=== PATIENT | male | born 1990 | race Caucasian/White ===

== ENCOUNTER 2017-11-06 14:26 | Emergency (ER) | payer BC, SELFPAY ==
[2017-11-06 14:28] VITALS: BP 157/93; PULSE 98; RESP 18; TEMP 36.4; O2SAT 97; BMI 38.7
--- NOTE | 2017-11-06 14:36 | EKG12_ITS ---
Test Reason : CP Blood Pressure : / mmHG Vent. Rate : 090 BPM Atrial Rate : 090 BPM P-R Int : 126 ms QRS Dur : 082 ms QT Int : 344 ms P-R-T Axes : 038 043 038 degrees QTc Int : 420 ms Normal sinus rhythm Normal ECG Confirmed by CHAD BOUCHER MD ([id number]), associate editor JACOB MEDINA ([id number] on 11/10/2017 8:27:01 AM Referred By: Confirmed By:CHAD BOUCHER MD
[2017-11-06 14:57] LABS: Absolute Neutrophil Count 6.1 X10^3/uL (2.0-7.7); Basophil# 0.04 X10^3/uL; Basophil% 0.4 % (0-1); Eosinophil# 0.13 X10^3/uL; Eosinophils% 1.4 % (0-5); Hematocrit 42.1 % (40-54); Hemoglobin 15.2 g/dl (13.0-16.5); Lymphocyte % 26.3 % (19-41); Mean Corp Hgb Conc 36.1 g/gl (32-36); Mean Corpuscular Hgb 29.6 pg (27.0-32.0); Mean Corpuscular Volume 82.1 fL (80-94); Mean Platelet Vol. 9.9 fl (6.2-12.0); Monocyte# 0.73 X10^3/uL; Monocyte% 7.7 % (0-10); Neutrophil # 6.08 X10^3/uL (2.7-7.7); Neutrophil % 64.1 % (47-70); Platelet Count 247 K/mm3 (150-450); RBC Distribution Width CV 12.7 % (11.6-14.6); Red Blood Count 5.13 M/mm3 (4.6-6.2); White Blood Count 9.5 K/mm3 (4.4-11.0)
[2017-11-06] MEDS: Aspirin 81 MG TAB.CHEW 324 MG PO (14:59)
--- NOTE | 2017-11-06 15:00 | RAD_ITS ---
STUDY: X-RAY CHEST REASON FOR EXAM: Male, 26 years old. Chest pain. TECHNIQUE: PA and lateral views of the chest. COMPARISON: None. FINDINGS: EKG electrodes are seen. The lungs are clear and expanded. There is no demonstrated pleural abnormality. Normal size heart. Normal mediastinum and juan manuel. Normal visualized pulmonary arteries. Normal visualized aortic arch and descending thoracic aorta. Normal visualized thoracic spine. Normal visualized ribs, clavicles, and shoulders. There is no demonstrated abnormality of the visualized soft tissue structures of the upper abdomen. RAD/Chest PA and Lateral IMPRESSION: Normal x-ray examination of the chest. Electronically Signed: Siddhartha Noel MD at 15:31 EDT Tel [phone], Service support ,
[2017-11-06 15:03] LABS: POSITIVE COUNT NO; POSITIVE DIFFERENTIAL NO; POSITIVE MORPHOLOGY NO
[2017-11-06 15:16] LABS: Anion Gap 7 (5-15); BUN 16 mg/dL (7-18); Calcium,Total 9.5 mg/dL (8.5-10.1); Chloride 102 mmol/L (98-107); Creatinine, Serum 1.07 mg/dL (0.70-1.30); EST Glomerular Filtration Rate 88 mL/min (>60); Est Glom Filt Rate - Afr Amer 107 mL/min (>60); Estimated Creatinine Clearance 104.62 ml/min; Glucose 96 mg/dL (74-106); Potassium 4.1 mmol/L (3.5-5.1); Sodium Level 137 mmol/L (136-145)
--- NOTE | 2017-11-06 15:45 | ED.VISSUMM ---
- ER Visit Summary Date of Service: 11/06/17 Chief Complaint: [] Chest pain History of Present Illness: The patient is a 26 M [] complaining of chest pain for the last 2 days. Does report recent travel with a flight to [place]. Chest pain, denies history of DVT or PE. Denies cardiovascular risk factors. Reports chest pressure acquired prior to arrival. Reports mild nonproductive cough. No other complaints at this time. Physical Examination: [] Afebrile, vital signs stable. Cardiovascular exam is regular rate and rhythm. Lungs are clear to auscultation. Abdomen soft nontender. No lower extremity edema. Test Results: [] Chest x-ray 2 views: Is negative. EKG shows normal sinus rhythm rate of 90 without ischemic changes or ectopy. CBC, BMP, troponin within normal limits. D-dimer is negative at 0.30. Emergency Department Course and Treatment: [] Pt evaluated for Chest pain. Workup is negative. Pt presents with a benign hx and appears well. I encouraged PCP F/U. Treatment Plan: [] F/U PCP. Disposition: [] Discharge, stable. Impression: [] Chest pain, unknown etiology This note was generated with [employer] dictation software. It may contain incorrect words, spelling, and punctuation that were not noted in review of the chart prior to signing ED Disposition - Plan for ED Patient: Chief Complaint: Chest Pain Referrals: Care Physician,No Primary [Primary Care Provider] -
--- NOTE | 2017-11-06 15:49 | ED.DEP ---
ED Disposition - Plan for ED Patient: Disposition: Home or Assisted Living Chief Complaint: Chest Pain Instructions: ED Chest Pain Atypical Unkn Cause Referrals: Care Physician,No Primary [Primary Care Provider] -
[2017-11-06 16:36] VITALS: BP 121/59; PULSE 72; RESP 16; O2SAT 98
== END 2017-11-06 16:37 | disposition home or self-care (01) ==
PROVIDERS: Emergency Provider Emergency Medicine
DX: R07.9 Chest pain, unspecified (principal); R05 Cough
CPT/HCPCS: 71046; 80048; 84484; 85025; 85379; 93005; 99284; A4216